=== PATIENT | male | born 1975 | race Caucasian/White ===

== ENCOUNTER 2020-04-09 10:07 | Inpatient (IN) ==
[2020-04-09 10:54] LABS: Basophils % 0.3 %; Eosinophils # 0.3 K/mcL (0.0-0.6); Eosinophils % 2.5 %; Hematocrit 34.5 % (37.5-50.1); Hemoglobin 11.6 g/dL (12.9-16.9); Immature Granulocytes % 0.3 % (0-4); Lymphocytes % 17.3 %; Mean Corpuscular HGB Conc 33.6 g/dL (31.6-35.5); Mean Corpuscular Hemoglobin 31.9 pg (28.0-33.3); Mean Corpuscular Volume 94.8 fL (83.0-100.0); Mean Platelet Volume 9.9 fL (9.4-12.4); Monocytes % 9.1 %; Platelet Count 268 K/mcL (140-400); Red Blood Count 3.64 M/mcL (4.19-5.50); Red Cell Distribution Width 11.9 % (11.5-14.5); Segmented Neutrophils % 70.5 %; White Blood Count 11.3 K/mcL (4.3-11.1)
[2020-04-09 11:10] LABS: BUN/Creatinine Ratio 17 (6-26); Blood Urea Nitrogen 25 mg/dL (6-20); Calcium 9.8 mg/dL (8.6-10.3); Carbon Dioxide 25 mEq/L (23-29); Chloride 105 mEq/L (98-107); Glucose 125 mg/dL (70-105); Osmolality,Calculated 290 (280-300); Potassium 3.5 mEq/L (3.5-5.1); Sodium 137 mEq/L (136-145); eGFR For African Americans > 60 (> 60); eGFR For Non-African Americans 52 (> 60)
[2020-04-09 11:37] LABS: Bilirubin,Urine Negative (Negative); Blood,Urine Large (Negative); Clarity,Urine Ex.Turbid (Clear); Color,Urine Dark-Red (Yellow); Glucose,Urine (UA) 200 mg/dL (Normal); Ketones,Urine Negative (Negative); Leukocyte Esterase,Urine Negative (Negative); Nitrite,Urine Negative (Negative); Protein,Urine >=600 mg/dL (Neg-Trace); Specific Gravity,Urine > 1.030 (1.010-1.025); Urobilinogen,Urine Normal (Normal)
[2020-04-09 12:27] LABS: Prothrombin Time 11.5 Seconds (9.4-12.1)
[2020-04-09] MEDS ORDERED: *HR* FentaNYL (PF) 100 MCG/2 ML VIAL IVP ONE (15:29)
[2020-04-09] MEDS ORDERED: Naloxone 0.4 MG/ML INJ IVP PRN (16:20)
[2020-04-09] MEDS ORDERED: Acetaminophen 325 MG TABLET PO PRN (16:20)
[2020-04-09] MEDS ORDERED: *HR* Belladonna Alkaloids/Opium 30 MG RECTAL SUPPOSITORY RC PRN (16:20)
[2020-04-09] MEDS ORDERED: Ondansetron 4 MG/2 ML VIAL IVP PRN (16:20)
[2020-04-09] MEDS: *HR* HYDROcodone/Acet 5/325 mg TABLET PO PRN ×2 (16:44→23:06)
[2020-04-09] MEDS: 0.9 % Sodium Chloride 1,000 ML IVC SCH (16:45)
[2020-04-09] MEDS: *HR* OxyCODONE Immed Rel 5 MG TABLET PO PRN (20:28)
[2020-04-10] MEDS: *HR* OxyCODONE Immed Rel 5 MG TABLET PO PRN ×3 (03:26→21:30)
[2020-04-10] MEDS: 0.9 % Sodium Chloride 1,000 ML IVC SCH ×2 (05:38→17:31)
[2020-04-10] MEDS: *HR* HYDROcodone/Acet 5/325 mg TABLET PO PRN ×3 (05:38→18:26)
[2020-04-10 07:50] LABS: Hematocrit 29.6 % (37.5-50.1)
[2020-04-10 07:51] LABS: Hemoglobin 9.7 g/dL (12.9-16.9)
[2020-04-10] MEDS ORDERED: Ketorolac 30 MG/ML VIAL IVP ONE (09:20)
[2020-04-10] MEDS ORDERED: Loratadine/Pseudophed (12 HR) 1 EACH TABLET PO PRN (09:20)
[2020-04-10] MEDS ORDERED: Isovue-370 500 ML BOTTLE IVP ONE ×2 (09:45→10:53)
[2020-04-10] MEDS: Acetaminophen IV 1,000 MG/100 ML INFUS..BTL IVPB SCH ×3 (12:14→23:38)
[2020-04-11] MEDS: *HR* OxyCODONE Immed Rel 5 MG TABLET PO PRN ×3 (04:22→17:49)
[2020-04-11] MEDS: Acetaminophen IV 1,000 MG/100 ML INFUS..BTL IVPB SCH ×4 (05:27→22:48)
[2020-04-11] MEDS: 0.9 % Sodium Chloride 1,000 ML IVC SCH (07:25)
[2020-04-11] MEDS: *HR* HYDROcodone/Acet 5/325 mg TABLET PO PRN ×2 (07:56→14:19)
[2020-04-11] MEDS ORDERED: Isovue-300 50ML VIAL ONE (19:46)
[2020-04-11] MEDS ORDERED: *HR* FentaNYL (PF) 100 MCG/2 ML VIAL ONE ×3 (21:48→23:10)
[2020-04-11] MEDS ORDERED: Ondansetron 4 MG/2 ML VIAL ONE ×2 (21:49→22:02)
[2020-04-11] MEDS ORDERED: Lidocaine -MPF 2% 2 ML VIAL ONE (21:49)
[2020-04-11] MEDS ORDERED: *HR* Propofol 200 MG/20 ML VIAL IVP ONE (21:49)
[2020-04-11] MEDS ORDERED: Dexamethasone 4 MG/ML VIAL ONE (22:02)
[2020-04-11] MEDS ORDERED: EPINEPHrine 1 MG/ML VIAL ONE (22:14)
[2020-04-11] MEDS ORDERED: EPHEDrine 50 MG/ML VIAL ONE (22:14)
[2020-04-11] MEDS ORDERED: Ringers Solution, Lactated 1,000 ML ONE (23:02)
[2020-04-11] MEDS ORDERED: Naloxone 0.4 MG/ML INJ IVP PRN ×2 (23:03→23:51)
[2020-04-11] MEDS: *HR* FentaNYL (PF) 100 MCG/2 ML VIAL IVP PRN ×2 (23:11→23:24)
[2020-04-11] MEDS ORDERED: Ondansetron 4 MG/2 ML VIAL IVP PRN (23:51)
[2020-04-11] MEDS ORDERED: *HR* Belladonna Alkaloids/Opium 30 MG RECTAL SUPPOSITORY RC PRN (23:51)
[2020-04-11] MEDS ORDERED: *HR* OxyCODONE/APAP 5/325 TABLET PO PRN (23:51)
[2020-04-11] MEDS ORDERED: PHENAZOPYRIDINE HCL 200 MG PO PRN (23:51)
[2020-04-11] MEDS ORDERED: *HR* HYDROcodone/Acet 5/325 mg TABLET PO PRN (23:51)
[2020-04-11] MEDS ORDERED: 0.9 % Sodium Chloride 1,000 ML IVC SCH (23:51)
[2020-04-11] MEDS ORDERED: Loratadine/Pseudophed (12 HR) 1 EACH TABLET PO PRN (23:51)
[2020-04-12] MEDS: *HR* OxyCODONE Immed Rel 5 MG TABLET PO PRN ×2 (00:06→06:07)
[2020-04-12] MEDS: Acetaminophen IV 1,000 MG/100 ML INFUS..BTL IVPB SCH ×2 (02:05→06:06)
[2020-04-12 03:23] LABS: Hematocrit 29.6 % (37.5-50.1); Hemoglobin 10.1 g/dL (12.9-16.9)
[2020-04-12 03:41] LABS: BUN/Creatinine Ratio 10 (6-26); Blood Urea Nitrogen 8 mg/dL (6-20); Calcium 8.4 mg/dL (8.6-10.3); Carbon Dioxide 25 mEq/L (23-29); Chloride 105 mEq/L (98-107); Glucose 167 mg/dL (70-105); Osmolality,Calculated 286 (280-300); Potassium 3.7 mEq/L (3.5-5.1); Sodium 137 mEq/L (136-145); eGFR For African Americans > 60 (> 60); eGFR For Non-African Americans > 60 (> 60)
[2020-04-12 07:19] VITALS: BP 119/63
[2020-04-12] MEDS: 0.9 % Sodium Chloride 1,000 ML IVC SCH (07:32)
== END 2020-04-12 10:54 | disposition home or self-care (01) | DRG 663 ==
LOC: 3ANU 10:07 → EMEROOARM 10:07 → 3ANU 15:57
PROVIDERS: ADMIT Urology; ATTEND Urology